=== PATIENT | female | born 2000 | race Caucasian/White ===

== ENCOUNTER 2020-03-12 11:49 | Emergency (ER) | payer SELFPAY ==
[~2020-03-12] VITALS: Ht 177.8 cm; Wt 63.6 kg
[2020-03-12 12:26] VITALS: BP 106/66; TEMP 99
[2020-03-12 14:01] VITALS: PULSE 82
== END 2020-03-12 14:01 | disposition short-term general hospital (02) ==
LOC: COL.ER 11:49
DX: S62.622B Displaced fracture of middle phalanx of right middle finger, initial encounter for open fracture (principal); Z88.0 Allergy status to penicillin; W23.0XXA Caught, crushed, jammed, or pinched between moving objects, initial encounter; Y99.0 Civilian activity done for income or pay
CPT/HCPCS: J0696; J1170; J2405; J3010